=== PATIENT | male | born 1960 | race Caucasian/White ===

== ENCOUNTER 2019-09-23 10:37 | Inpatient (IN) ==
[2019-09-23] MEDS ORDERED: DILAUDID INJ IVP PRN (11:01)
[2019-09-23] MEDS ORDERED: TORADOL 30 MG VIAL IVP PRN (11:02)
[2019-09-23] MEDS ORDERED: DILAUDID INJ ONE (11:05)
[2019-09-23 11:34] VITALS: BMI 24.7
[2019-09-23] MEDS ORDERED: DEMEROL INJ IVP PRN (11:37)
[2019-09-23 11:59] LABS: BASOPHILS # (AUTO) 0.1 X10^3/uL (0.0-0.1); BASOPHILS % (AUTO) 1.3 % (0.2-1.0); EOSINOPHILS # (AUTO) 0.1 x10^3/uL (0.0-0.2); EOSINOPHILS % (AUTO) 1.4 % (0.9-2.9); HEMATOCRIT 39.7 % (42.0-54.0); HEMOGLOBIN 13.8 g/dL (13.5-18.0); LYMPHOCYTES % (AUTO) 24.3 % (21.0-51.0); MEAN CORPUSCULAR HEMOGLOBIN 31.4 pg (27.0-34.0); MEAN CORPUSCULAR HGB CONC 34.9 g/dL (33.0-35.0); MEAN CORPUSCULAR VOLUME 90.2 fL (80.0-100.0); MEAN PLATELET VOLUME 7.2 fL (7.4-11.0); MONOCYTES # (AUTO) 0.4 x10^3/uL (0.3-0.8); MONOCYTES % (AUTO) 4.9 % (0.0-13.0); NEUTROPHILS # (AUTO) 5.5 x10^3/uL (2.2-4.8); NEUTROPHILS % (AUTO) 68.1 % (42.0-75.0); PLATELET COUNT 371 X10^3/uL (150.0-450.0); RED CELL DISTRIBUTION WIDTH 13.7 % (11.6-16.5); WHITE BLOOD COUNT 8.1 X10^3/uL (3.6-10.0)
[2019-09-23 12:11] LABS: ALANINE AMINOTRANSFERASE 32 Units/L (12-78); ALBUMIN 3.5 g/dL (3.4-5.0); ALKALINE PHOSPHATASE 74 Units/L (46-116); ASPARTATE AMINO TRANSFERASE 17 Units/L (15-37); BLOOD UREA NITROGEN 14 mg/dL (7-18); CALCIUM 9.1 mg/dL (8.5-10.1); CARBON DIOXIDE 27.9 mmol/L (21-32); CHLORIDE 100 mmol/L (98-107); COR NA(FOR HYPERGLY) 137 mmol/L (136-145); CREATININE 0.95 mg/dL (0.70-1.30); SODIUM 136 mmol/L (136-145); TOTAL PROTEIN 6.9 g/dL (6.4-8.2); eGFR NON BLACK RACES > 60 (>60)
[2019-09-23] MEDS: MYCOLOG-II CREAM TOP SCH ×2 (13:24→20:56)
[2019-09-23] MEDS: DIFLUCAN 200 MG IV PREMIX* 200 MG/100 ML BAG IV SCH (13:25)
[2019-09-23] MEDS: CIPRO IV 400 MG PREMIX* 400 MG/200 ML IV.SOLN. IV SCH ×2 (13:25→20:56)
[2019-09-23] MEDS: NS 1000 ML 1,000 ML IV SCH (13:25)
[2019-09-23 13:40] LABS: BILIRUBIN,URINE NEGATIVE (NEGATIVE); BLOOD/HEMOGLOBIN,URINE NEGATIVE (NEGATIVE); GLUCOSE, URINE 4+ (NEGATIVE); KETONES,URINE 1+ (NEGATIVE); LEUKOCYTE ESTERASE ,URINE 1+ (NEGATIVE); NITRITES,URINE NEGATIVE (NEGATIVE); PROTEIN,URINE 1+ (NEGATIVE); UROBILINOGEN,URINE 1+ (NORMAL)
[2019-09-23 13:45] LABS: APPEARANCE,URINE HAZY (CLEAR); BACTERIA,URINE NEGATIVE /HPF (NEGATIVE); COLOR,URINE YELLOW (YELLOW); RBC,URINE 0-2 /HPF (0-3); SQUAMOUS EPITHELIAL CELL,UR NEGATIVE /HPF (NEGATIVE)
[2019-09-23] MEDS: XYLOCAINE VISCOUS MT SCH ×3 (15:07→20:56)
[2019-09-23] MEDS: DILAUDID INJ IVP PRN (20:55)
[2019-09-23] MEDS: HumuLIN R SUBCUT PRN (20:56)
[2019-09-24] MEDS: NS 1000 ML 1,000 ML IV SCH ×3 (02:11→15:12)
[2019-09-24] MEDS: DILAUDID INJ IVP PRN ×4 (04:20→21:44)
[2019-09-24 06:35] LABS: BASOPHILS # (AUTO) 0.1 X10^3/uL (0.0-0.1); BASOPHILS % (AUTO) 1.1 % (0.2-1.0); EOSINOPHILS # (AUTO) 0.3 x10^3/uL (0.0-0.2); HEMATOCRIT 35.7 % (42.0-54.0); HEMOGLOBIN 12.4 g/dL (13.5-18.0); LYMPHOCYTES # (AUTO) 2.6 X10^3/uL (1.3-2.9); LYMPHOCYTES % (AUTO) 38.2 % (21.0-51.0); MEAN CORPUSCULAR HGB CONC 34.7 g/dL (33.0-35.0); MEAN CORPUSCULAR VOLUME 92.1 fL (80.0-100.0); MONOCYTES # (AUTO) 0.5 x10^3/uL (0.3-0.8); MONOCYTES % (AUTO) 7.2 % (0.0-13.0); NEUTROPHILS # (AUTO) 3.4 x10^3/uL (2.2-4.8); NEUTROPHILS % (AUTO) 49.5 % (42.0-75.0); PLATELET COUNT 321 X10^3/uL (150.0-450.0); RED BLOOD COUNT 3.88 X10^6/uL (4.7-6.0); RED CELL DISTRIBUTION WIDTH 14.1 % (11.6-16.5); WHITE BLOOD COUNT 6.8 X10^3/uL (3.6-10.0)
[2019-09-24 06:45] LABS: ALANINE AMINOTRANSFERASE 26 Units/L (12-78); ALBUMIN 2.8 g/dL (3.4-5.0); ALKALINE PHOSPHATASE 60 Units/L (46-116); ASPARTATE AMINO TRANSFERASE 16 Units/L (15-37); BLOOD UREA NITROGEN 12 mg/dL (7-18); CALCIUM 8.2 mg/dL (8.5-10.1); CARBON DIOXIDE 28.4 mmol/L (21-32); CHLORIDE 103 mmol/L (98-107); COR CA(FOR HYPOALB) 9.2 mg/dL (8.5-10.1); CREATININE 0.72 mg/dL (0.70-1.30); SODIUM 138 mmol/L (136-145); TOTAL PROTEIN 5.7 g/dL (6.4-8.2); eGFR NON BLACK RACES > 60 (>60)
[2019-09-24] MEDS: DIFLUCAN 200 MG IV PREMIX* 200 MG/100 ML BAG IV SCH (09:59)
[2019-09-24] MEDS: CIPRO IV 400 MG PREMIX* 400 MG/200 ML IV.SOLN. IV SCH ×2 (09:59→21:42)
[2019-09-24] MEDS: MYCOLOG-II CREAM TOP SCH ×3 (10:01→21:44)
[2019-09-24] MEDS: XYLOCAINE VISCOUS MT SCH (10:02)
[2019-09-24] MEDS ORDERED: XYLOCAINE OINT 5% TOP SCH ×2 (10:45)
--- NOTE | 2019-09-24 10:58 | DR.UPDATE ---
H&P Update History and Physical Update: History and Physical reviewed and patient examined. Changes noted: Yes with the following: PRESENTED TO THE OFFICE WITH COMPLAINTS OF SEVERE PAIN WHEN URINATING. HE HAD A PROSTECTOMY THREE WEEKS AGO. HE REPORTS THAT HE ALMAZ A CATHETER TAKEN OUT ABOUT A WEEK AGO AND THAT SYMP TOMS STARTED THEN. HE WAS ADMITTED FOR FURTHER EVALUATION AND TREATMENT. ON ADMISSION, WE WILL OBTAIN LABS, A URINALYSIS, AND AN ABDOMEN/PELVIS CT. WE WILL START DEMEROL 25MG IV Q4H PRN PAIN, TORADOL 30MG IV Q8H PRN, NYSTATIN CREAM BID, DIFLUCAN 200MG IV DAILY, AND NORMLA SALINE AT 100ML/HR. OTHERWISE, WE PLAN TO FOLLOW UP WITH AM LABS AND CONTINUE TO MONITOR. Prescription drug monitoring program results: PDMP was not reviewed H&P Reviewed: Yes Patient was examined?: Yes
[2019-09-24] MEDS: TORADOL 30 MG VIAL IVP PRN (12:57)
[2019-09-25] MEDS: NS 1000 ML 1,000 ML IV SCH ×5 (00:08→20:58)
[2019-09-25] MEDS: DILAUDID INJ IVP PRN ×4 (04:58→20:59)
[2019-09-25] MEDS: MYCOLOG-II CREAM TOP SCH ×3 (05:53→21:09)
[2019-09-25 06:21] LABS: BASOPHILS # (AUTO) 0.1 X10^3/uL (0.0-0.1); BASOPHILS % (AUTO) 1.1 % (0.2-1.0); EOSINOPHILS # (AUTO) 0.3 x10^3/uL (0.0-0.2); HEMATOCRIT 34.8 % (42.0-54.0); HEMOGLOBIN 12.4 g/dL (13.5-18.0); LYMPHOCYTES % (AUTO) 27.4 % (21.0-51.0); MEAN CORPUSCULAR HEMOGLOBIN 32.7 pg (27.0-34.0); MEAN CORPUSCULAR HGB CONC 35.6 g/dL (33.0-35.0); MEAN PLATELET VOLUME 8.3 fL (7.4-11.0); MONOCYTES # (AUTO) 0.6 x10^3/uL (0.3-0.8); MONOCYTES % (AUTO) 8.1 % (0.0-13.0); NEUTROPHILS # (AUTO) 4.4 x10^3/uL (2.2-4.8); NEUTROPHILS % (AUTO) 59.4 % (42.0-75.0); PLATELET COUNT 294 X10^3/uL (150.0-450.0); RED BLOOD COUNT 3.78 X10^6/uL (4.7-6.0); RED CELL DISTRIBUTION WIDTH 13.7 % (11.6-16.5); WHITE BLOOD COUNT 7.4 X10^3/uL (3.6-10.0)
[2019-09-25 06:40] LABS: ALANINE AMINOTRANSFERASE 26 Units/L (12-78); ALBUMIN 2.7 g/dL (3.4-5.0); ALKALINE PHOSPHATASE 61 Units/L (46-116); ASPARTATE AMINO TRANSFERASE 16 Units/L (15-37); BLOOD UREA NITROGEN 15 mg/dL (7-18); CALCIUM 8.1 mg/dL (8.5-10.1); CARBON DIOXIDE 26.9 mmol/L (21-32); CHLORIDE 104 mmol/L (98-107); COR CA(FOR HYPOALB) 9.1 mg/dL (8.5-10.1); COR NA(FOR HYPERGLY) 140 mmol/L (136-145); SODIUM 138 mmol/L (136-145); TOTAL PROTEIN 5.6 g/dL (6.4-8.2); eGFR NON BLACK RACES > 60 (>60)
--- NOTE | 2019-09-25 07:45 | CT ---
HISTORY: Dysuria Study: CT abdomen and pelvis without contrast Comparison: None Technique: Multiple axial images of the abdomen and pelvis were obtained from the lung bases to the pubic symphysis without the administration of IV contrast. Dose reduction techniques including Automated Exposure Control (AEC) and adjustment of mA and kV were utlized. Findings: Lung bases show mild atelectasis/scarring. Coronary artery calcifications are present. Moderate atherosclerosis. No bowel obstruction. There is skin thickening of the scrotum and base of the penis with subcutaneous gas extending superiorly along the lower abdominal wall and to lesser extent within the left inguinal canal. There is mild deep pelvic stranding with sequelae of prostatectomy. The urinary bladder is collapsed, limiting its evaluation. No visible abscess. No lymphadenopathy is seen. No acute osseous finding. Except as described above, the following organs/tissues were reviewed and found to be without significant abnormality within the limits of the exam: Lung bases, liver, gallbladder, pancreas, spleen, kidneys and ureters, stomach, small and large bowel, peritoneal space, urinary bladder, reproductive organs, major vessels, lymph nodes, bones, regional soft tissues. IMPRESSION: 1. Soft tissue emphysema of the lower abdominal wall is of uncertain significance in the setting of recent surgery, however gas-forming infection would be difficult to exclude. There is mild subcutaneous stranding and skin thickening involving the scrotum in base of penis. 2. Mild deep pelvic stranding may relate to recent prostatectomy. Infection not excluded. Urinary bladder is collapsed, limiting its evaluation. No abscess is identified. Reported By:
[2019-09-25] MEDS: CIPRO IV 400 MG PREMIX* 400 MG/200 ML IV.SOLN. IV SCH ×2 (10:11→20:58)
[2019-09-25] MEDS: DIFLUCAN 200 MG IV PREMIX* 200 MG/100 ML BAG IV SCH (10:11)
[2019-09-25] MEDS ORDERED: CLEOCIN VIAL 600 MG IV SCH (15:00)
[2019-09-25] MEDS: CLEOCIN 600 MG IV PREMIX 600 MG/50 ML BAG IV SCH ×2 (15:58→21:00)
[2019-09-25] MEDS: PYRIDIUM PO SCH (16:00)
[2019-09-25] MEDS: HumuLIN R SUBCUT PRN (16:57)
[2019-09-25] MEDS: AMBIEN PO PRN (20:59)
[2019-09-26] MEDS: DILAUDID INJ IVP PRN ×4 (04:02→20:36)
[2019-09-26 05:03] LABS: BASOPHILS # (AUTO) 0.1 X10^3/uL (0.0-0.1); BASOPHILS % (AUTO) 1.1 % (0.2-1.0); EOSINOPHILS # (AUTO) 0.3 x10^3/uL (0.0-0.2); EOSINOPHILS % (AUTO) 4.5 % (0.9-2.9); HEMATOCRIT 34.3 % (42.0-54.0); LYMPHOCYTES # (AUTO) 2.2 X10^3/uL (1.3-2.9); LYMPHOCYTES % (AUTO) 35.6 % (21.0-51.0); MEAN CORPUSCULAR HEMOGLOBIN 32.3 pg (27.0-34.0); MEAN CORPUSCULAR VOLUME 92.1 fL (80.0-100.0); MEAN PLATELET VOLUME 8.1 fL (7.4-11.0); MONOCYTES # (AUTO) 0.5 x10^3/uL (0.3-0.8); MONOCYTES % (AUTO) 7.9 % (0.0-13.0); NEUTROPHILS # (AUTO) 3.2 x10^3/uL (2.2-4.8); NEUTROPHILS % (AUTO) 50.9 % (42.0-75.0); PLATELET COUNT 257 X10^3/uL (150.0-450.0); RED BLOOD COUNT 3.72 X10^6/uL (4.7-6.0); RED CELL DISTRIBUTION WIDTH 13.9 % (11.6-16.5); WHITE BLOOD COUNT 6.2 X10^3/uL (3.6-10.0)
[2019-09-26 05:27] LABS: ALANINE AMINOTRANSFERASE 30 Units/L (12-78); ALBUMIN 2.8 g/dL (3.4-5.0); ALKALINE PHOSPHATASE 59 Units/L (46-116); ASPARTATE AMINO TRANSFERASE 17 Units/L (15-37); BLOOD UREA NITROGEN 12 mg/dL (7-18); CALCIUM 8.1 mg/dL (8.5-10.1); CARBON DIOXIDE 28.3 mmol/L (21-32); CHLORIDE 104 mmol/L (98-107); COR CA(FOR HYPOALB) 9.1 mg/dL (8.5-10.1); COR NA(FOR HYPERGLY) 139 mmol/L (136-145); CREATININE 0.74 mg/dL (0.70-1.30); SODIUM 138 mmol/L (136-145); TOTAL PROTEIN 5.8 g/dL (6.4-8.2); eGFR NON BLACK RACES > 60 (>60)
[2019-09-26] MEDS: NS 1000 ML 1,000 ML IV SCH ×2 (05:50→20:34)
[2019-09-26] MEDS: CLEOCIN 600 MG IV PREMIX 600 MG/50 ML BAG IV SCH ×3 (05:50→21:46)
[2019-09-26] MEDS: MYCOLOG-II CREAM TOP SCH ×3 (05:50→21:47)
[2019-09-26] MEDS: PYRIDIUM PO SCH ×3 (08:30→16:50)
[2019-09-26] MEDS: DIFLUCAN 200 MG IV PREMIX* 200 MG/100 ML BAG IV SCH (08:30)
[2019-09-26] MEDS: CIPRO IV 400 MG PREMIX* 400 MG/200 ML IV.SOLN. IV SCH ×2 (08:30→20:35)
[2019-09-26] MEDS: HumuLIN R SUBCUT PRN ×2 (12:30→16:50)
[2019-09-26] MEDS ORDERED: MYLICON TAB 80 MG CHEW PO PRN (16:26)
[2019-09-26] MEDS: AMBIEN PO PRN (20:35)
[2019-09-27] MEDS: DILAUDID INJ IVP PRN ×2 (03:25→09:01)
[2019-09-27 05:10] LABS: BASOPHILS # (AUTO) 0.1 X10^3/uL (0.0-0.1); EOSINOPHILS # (AUTO) 0.4 x10^3/uL (0.0-0.2); EOSINOPHILS % (AUTO) 4.5 % (0.9-2.9); HEMATOCRIT 35.5 % (42.0-54.0); HEMOGLOBIN 12.4 g/dL (13.5-18.0); LYMPHOCYTES # (AUTO) 2.1 X10^3/uL (1.3-2.9); LYMPHOCYTES % (AUTO) 26.9 % (21.0-51.0); MEAN CORPUSCULAR HEMOGLOBIN 31.9 pg (27.0-34.0); MEAN CORPUSCULAR VOLUME 91.1 fL (80.0-100.0); MONOCYTES # (AUTO) 0.6 x10^3/uL (0.3-0.8); MONOCYTES % (AUTO) 7.5 % (0.0-13.0); NEUTROPHILS # (AUTO) 4.7 x10^3/uL (2.2-4.8); NEUTROPHILS % (AUTO) 60.1 % (42.0-75.0); PLATELET COUNT 249 X10^3/uL (150.0-450.0); RED BLOOD COUNT 3.89 X10^6/uL (4.7-6.0); RED CELL DISTRIBUTION WIDTH 13.8 % (11.6-16.5); WHITE BLOOD COUNT 7.8 X10^3/uL (3.6-10.0)
[2019-09-27 05:18] LABS: ALANINE AMINOTRANSFERASE 29 Units/L (12-78); ALBUMIN 2.8 g/dL (3.4-5.0); ALKALINE PHOSPHATASE 61 Units/L (46-116); ASPARTATE AMINO TRANSFERASE 16 Units/L (15-37); BLOOD UREA NITROGEN 14 mg/dL (7-18); CARBON DIOXIDE 29.8 mmol/L (21-32); CHLORIDE 104 mmol/L (98-107); COR NA(FOR HYPERGLY) 139 mmol/L (136-145); CREATININE 0.76 mg/dL (0.70-1.30); SODIUM 138 mmol/L (136-145); TOTAL PROTEIN 5.8 g/dL (6.4-8.2); eGFR NON BLACK RACES > 60 (>60)
[2019-09-27] MEDS: MYCOLOG-II CREAM TOP SCH ×3 (05:36→21:03)
[2019-09-27] MEDS: CLEOCIN 600 MG IV PREMIX 600 MG/50 ML BAG IV SCH (05:36)
[2019-09-27] MEDS: NS 1000 ML 1,000 ML IV SCH ×2 (05:37→07:06)
[2019-09-27] MEDS: PYRIDIUM PO SCH ×3 (09:01→17:32)
[2019-09-27] MEDS: DIFLUCAN 200 MG IV PREMIX* 200 MG/100 ML BAG IV SCH (09:02)
[2019-09-27] MEDS: CIPRO IV 400 MG PREMIX* 400 MG/200 ML IV.SOLN. IV SCH ×2 (09:02→21:01)
[2019-09-27] MEDS ORDERED: DILAUDID INJ IVP PRN (10:14)
[2019-09-27] MEDS: NORCO 7.5/325 MG TAB PO PRN ×2 (11:43→20:59)
--- NOTE | 2019-09-27 11:49 | RAD ---
HISTORY: Dysuria, difficulty emptying bladder. Her medical history of coronary artery disease, prostate cancer, hypertension, diabetes type 2. Prior surgical history of heart and prostate. Study: KUB Comparison: CT abdomen and pelvis done 09/25/2019. Findings: Large amount of stool is present in the right colon. There is some residual contrast material present and mild amount of stool present involving the descending colon and rectosigmoid regions. No bowel obstruction is seen. There is no evidence of opaque stone. Osseous structures are intact. No evidence of bladder distention is seen. IMPRESSION: Abundant right colon stool without bowel obstruction. No opaque stone is seen. Reported By:
[2019-09-27] MEDS: MILK OF MAGNESIA PO SCH ×2 (12:51→21:00)
[2019-09-27] MEDS: HumuLIN R SUBCUT PRN (17:20)
[2019-09-27] MEDS ORDERED: BUTT CREAM (COMPOUND) TOP PRN (18:53)
[2019-09-27] MEDS: AMBIEN PO PRN (20:59)
[2019-09-27] MEDS ORDERED: MILK OF MAGNESIA PO SCH (21:00)
[2019-09-27] MEDS ORDERED: MIRALAX POWDER (1 DOSE 17 G) PO SCH (21:00)
[2019-09-27] MEDS ORDERED: COLACE CAP 100 MG PO SCH (21:00)
[2019-09-27] MEDS: TORADOL 30 MG VIAL IVP PRN (23:24)
[2019-09-28] MEDS: NS 1000 ML 1,000 ML IV SCH ×3 (01:00→15:14)
[2019-09-28] MEDS: MYCOLOG-II CREAM TOP SCH ×2 (05:33→15:14)
[2019-09-28] MEDS: PYRIDIUM PO SCH (06:04)
[2019-09-28 06:28] LABS: BASOPHILS # (AUTO) 0.1 X10^3/uL (0.0-0.1); BASOPHILS % (AUTO) 0.8 % (0.2-1.0); EOSINOPHILS # (AUTO) 0.4 x10^3/uL (0.0-0.2); EOSINOPHILS % (AUTO) 5.5 % (0.9-2.9); HEMATOCRIT 37.1 % (42.0-54.0); HEMOGLOBIN 12.7 g/dL (13.5-18.0); LYMPHOCYTES # (AUTO) 2.1 X10^3/uL (1.3-2.9); LYMPHOCYTES % (AUTO) 30.6 % (21.0-51.0); MEAN CORPUSCULAR HEMOGLOBIN 31.4 pg (27.0-34.0); MEAN CORPUSCULAR HGB CONC 34.3 g/dL (33.0-35.0); MEAN CORPUSCULAR VOLUME 91.6 fL (80.0-100.0); MEAN PLATELET VOLUME 7.9 fL (7.4-11.0); MONOCYTES # (AUTO) 0.5 x10^3/uL (0.3-0.8); MONOCYTES % (AUTO) 6.5 % (0.0-13.0); NEUTROPHILS # (AUTO) 3.9 x10^3/uL (2.2-4.8); NEUTROPHILS % (AUTO) 56.6 % (42.0-75.0); PLATELET COUNT 239 X10^3/uL (150.0-450.0); RED BLOOD COUNT 4.05 X10^6/uL (4.7-6.0); RED CELL DISTRIBUTION WIDTH 14.3 % (11.6-16.5); WHITE BLOOD COUNT 6.9 X10^3/uL (3.6-10.0)
[2019-09-28 06:42] LABS: ALANINE AMINOTRANSFERASE 28 Units/L (12-78); ALKALINE PHOSPHATASE 67 Units/L (46-116); ASPARTATE AMINO TRANSFERASE 17 Units/L (15-37); BLOOD UREA NITROGEN 10 mg/dL (7-18); CALCIUM 8.3 mg/dL (8.5-10.1); CARBON DIOXIDE 29.8 mmol/L (21-32); CHLORIDE 103 mmol/L (98-107); COR CA(FOR HYPOALB) 9.1 mg/dL (8.5-10.1); COR NA(FOR HYPERGLY) 139 mmol/L (136-145); SODIUM 138 mmol/L (136-145); TOTAL PROTEIN 6.2 g/dL (6.4-8.2); eGFR NON BLACK RACES > 60 (>60)
[2019-09-28] MEDS: MILK OF MAGNESIA PO SCH (09:55)
[2019-09-28] MEDS: CIPRO IV 400 MG PREMIX* 400 MG/200 ML IV.SOLN. IV SCH (09:55)
[2019-09-28 10:26] VITALS: BP 159/76
[2019-09-28] MEDS: DIFLUCAN 200 MG IV PREMIX* 200 MG/100 ML BAG IV SCH (11:13)
[2019-09-28] MEDS: HumuLIN R SUBCUT PRN (12:53)
== END 2019-09-28 15:30 | disposition home or self-care (01) | DRG 556 ==
LOC: ICU → MED/SURG 09-24 15:15
PROVIDERS: ADMIT Internal Medicine; ATTEND Internal Medicine
CPT/HCPCS: 36415; 74000; 74018; 74176; 80053; 81001; 85025; 87086; A4216; A4222; G0378; J0744; J1170; J1450; J1815; J1885; J2175; J7030; S0077

== ENCOUNTER 2022-06-19 15:20 | Observation (INO) ==
[2022-06-19 18:01] LABS: BASOPHILS # (AUTO) 0.1 X10^3/uL (0.0-0.1); BASOPHILS % (AUTO) 1.2 % (0.2-1.0); EOSINOPHILS # (AUTO) 0.9 x10^3/uL (0.0-0.2); EOSINOPHILS % (AUTO) 10.5 % (0.9-2.9); HEMATOCRIT 39.7 % (42.0-54.0); LYMPHOCYTES # (AUTO) 2.6 X10^3/uL (1.3-2.9); LYMPHOCYTES % (AUTO) 29.8 % (21.0-51.0); MEAN CORPUSCULAR HEMOGLOBIN 32.1 pg (27.0-34.0); MEAN CORPUSCULAR HGB CONC 35.3 g/dL (33.0-35.0); MEAN CORPUSCULAR VOLUME 90.9 fL (80.0-100.0); MEAN PLATELET VOLUME 9.8 fL (7.4-11.0); MONOCYTES # (AUTO) 0.7 x10^3/uL (0.3-0.8); MONOCYTES % (AUTO) 7.9 % (0.0-13.0); NEUTROPHILS # (AUTO) 4.4 x10^3/uL (2.2-4.8); NEUTROPHILS % (AUTO) 50.6 % (42.0-75.0); RED BLOOD COUNT 4.36 X10^6/uL (4.7-6.0); RED CELL DISTRIBUTION WIDTH 13.3 % (11.6-16.5); WHITE BLOOD COUNT 8.6 X10^3/uL (3.6-10.0)
[2022-06-19] MEDS: LEVEMIR SC SCH (18:04)
[2022-06-19] MEDS: NS 1,000 ML IV 1,000 ML IV SCH (18:05)
[2022-06-19 18:10] LABS: HEMOGLOBIN A1C 12.7 %
[2022-06-19 18:14] LABS: ALANINE AMINOTRANSFERASE 20 Units/L (12-78); ALBUMIN 3.3 g/dL (3.4-5.0); ALKALINE PHOSPHATASE 74 Units/L (46-116); ASPARTATE AMINO TRANSFERASE 12 Units/L (15-37); BLOOD UREA NITROGEN 32 mg/dL (7-18); CALCIUM 8.7 mg/dL (8.5-10.1); CARBON DIOXIDE 25.9 mmol/L (21-32); CHLORIDE 99 mmol/L (98-107); COR CA(FOR HYPOALB) 9.3 mg/dL (8.5-10.1); COR NA(FOR HYPERGLY) 137 mmol/L (136-145); CREATININE 1.36 mg/dL (0.70-1.30); SODIUM 133 mmol/L (136-145); TOTAL PROTEIN 6.7 g/dL (6.4-8.2); eGFR NON BLACK RACES 56 (>60)
[2022-06-19] MEDS: RESTORIL CAP 15 MG PO PRN (20:53)
[2022-06-20] MEDS: NS 1,000 ML IV 1,000 ML IV SCH ×3 (06:10→20:40)
[2022-06-20 06:13] LABS: BASOPHILS # (AUTO) 0.1 X10^3/uL (0.0-0.1); EOSINOPHILS # (AUTO) 0.9 x10^3/uL (0.0-0.2); EOSINOPHILS % (AUTO) 11.9 % (0.9-2.9); HEMATOCRIT 39.1 % (42.0-54.0); HEMOGLOBIN 13.8 g/dL (13.5-18.0); LYMPHOCYTES # (AUTO) 2.1 X10^3/uL (1.3-2.9); LYMPHOCYTES % (AUTO) 26.8 % (21.0-51.0); MEAN CORPUSCULAR HEMOGLOBIN 32.1 pg (27.0-34.0); MEAN CORPUSCULAR HGB CONC 35.3 g/dL (33.0-35.0); MEAN CORPUSCULAR VOLUME 90.8 fL (80.0-100.0); MEAN PLATELET VOLUME 10.9 fL (7.4-11.0); MONOCYTES # (AUTO) 0.6 x10^3/uL (0.3-0.8); MONOCYTES % (AUTO) 7.4 % (0.0-13.0); NEUTROPHILS # (AUTO) 4.1 x10^3/uL (2.2-4.8); NEUTROPHILS % (AUTO) 52.9 % (42.0-75.0); RED CELL DISTRIBUTION WIDTH 13.1 % (11.6-16.5)
[2022-06-20 06:23] LABS: ALANINE AMINOTRANSFERASE 16 Units/L (12-78); ALKALINE PHOSPHATASE 64 Units/L (46-116); ASPARTATE AMINO TRANSFERASE 13 Units/L (15-37); BLOOD UREA NITROGEN 23 mg/dL (7-18); CALCIUM 8.6 mg/dL (8.5-10.1); CHLORIDE 104 mmol/L (98-107); COR CA(FOR HYPOALB) 9.4 mg/dL (8.5-10.1); COR NA(FOR HYPERGLY) 139 mmol/L (136-145); CREATININE 0.92 mg/dL (0.70-1.30); SODIUM 138 mmol/L (136-145); TOTAL PROTEIN 6.1 g/dL (6.4-8.2); eGFR NON BLACK RACES > 60 (>60)
[2022-06-20 06:49] LABS: WHITE BLOOD COUNT 8.4 X10^3/uL (3.6-10.0)
[2022-06-20 06:51] LABS: PLATELET MORPHOLOGY COMMENT NORMAL (NORMAL)
[2022-06-20] MEDS: LEVEMIR SC SCH (08:35)
[2022-06-20] MEDS ORDERED: ZESTRIL TAB 5 MG PO SCH (09:15)
[2022-06-20] MEDS ORDERED: ASPIRIN EC 81 MG PO SCH (10:00)
[2022-06-20] MEDS ORDERED: PROTONIX TAB 40 MG PO SCH (10:00)
[2022-06-20] MEDS ORDERED: AMARYL TAB 4 MG PO SCH (10:00)
[2022-06-20] MEDS ORDERED: VISTARIL PO ONE (10:59)
[2022-06-20] MEDS: PATIENT'S HOME MEDICATION PO SCH ×5 (11:28→20:42)
--- NOTE | 2022-06-20 13:02 | DR.UPDATE ---
H&P Update History and Physical Update: History and Physical reviewed and patient examined. Changes noted: Yes with the following: HAS BEEN SEEN IN THE OFFICE FOR COMPLAINTS OF HYPERGLYCEMIA. HE IS CURRENTLY TAKING GLIMEPIRIDE 4MG PO BID, PIOGLITAZONE 45MG PO HS, AND WAS RECENTLY STARTED ON JANUMET XR 100-1,000MG HS ONE WEEK AGO. PATIENT REPORTS PERSISTENTLY ELEVATED BLOOD GLUCOSE LEVELS DESPITE CHANGES TO MEDICATIONS. HE EXPRESSED CONCERNS OF HAVING TO BE ON INSULIN DUE TO HIS OCCUPATION. HE REPORTS THAT HIS BLOOD GLUCOSE AT HOME YESTERDAY WAS OVER 500g/dL. HE REPORTS NEAR SYNCOPE AND WEAKNESS WHEN GLUCOSE IS ELEVATED. DECISION WAS MADE TO ADMIT PATIENT TO THE HOSPITAL DUE TO UNCONTROLLED TYPE 2 DIABETES. ON ADMISSION, VITALS WERE [id number]%-146/67. LABS WERE OBTAINED. WBC 8.6, RBC 4.36, HGB 14.0, HCT 39.7, PLT COUNT 174, SODIUM 133, POTASSIUM 4.3, CHLORIDE 99, BUN 32, CREATININE 1.36, GLUCOSE 250, A1C 12.7, CALCIUM 8.7, AST 12, ALT 20, ALK PHOS 74, TOTAL PROTEIN 6.7, ALBUMIN 3.3. COVID-19 NEGATIVE. HE WAS STARTED ON NORMAL SALINE AT 80 ML/HR, LEVEMIR 15 UNITS SC HS, HUMALOG 5 UNITS TIDWM, AND RESTORIL 15MG PO HS PRN. WE WILL RESUME HIS HOME MEDICATIONS, INCLUDING JANUMET, GLIPIZIDE, AND PIOGLITAZONE. HE WAS COUNSELED ON A STRICT DIABETIC DIET. OTHERWISE, WE PLAN TO FOLLOW-UP WITH AM LABS AND CONTINUE TO MONITOR. TIME SPENT ON CLINICAL ASSESSMENT, REVIWING LABS AND IMAGING, DECISION MAKING, AND DOCUMENTATION GREATER THAN 75 MINUTES. H&P Reviewed: Yes Patient was examined?: Yes
[2022-06-20 15:35] VITALS: BMI 24.1
[2022-06-20] MEDS ORDERED: XANAX PO PRN (16:13)
[2022-06-20] MEDS ORDERED: HumaLOG SC SCH (17:41)
[2022-06-20] MEDS ORDERED: SNACK - Diabetic Appropriate PO SCH (20:00)
[2022-06-20] MEDS: RESTORIL CAP 15 MG PO PRN (20:44)
[2022-06-20] MEDS ORDERED: ACTOS PO SCH (21:00)
[2022-06-20] MEDS ORDERED: SITAGLIPTIN METFORMIN PO SCH (21:00)
[2022-06-20] MEDS ORDERED: JANUVIA PO SCH (21:00)
[2022-06-20] MEDS ORDERED: COREG TAB 3.125 MG PO SCH (21:00)
[2022-06-20] MEDS ORDERED: [UNRECOGNIZED DRUG - OTHER] PO SCH (21:00)
[2022-06-20] MEDS ORDERED: GLUCOPHAGE XR 24-HR PO SCH (21:00)
[2022-06-20] MEDS ORDERED: LIPITOR TAB 40 MG PO SCH (21:00)
[2022-06-20] MEDS ORDERED: MULT PO SCH (21:00)
[2022-06-20] MEDS ORDERED: PATIENT'S HOME MEDICATION PO SCH ×4 (21:00)
[2022-06-21 06:06] LABS: BASOPHILS # (AUTO) 0.1 X10^3/uL (0.0-0.1); BASOPHILS % (AUTO) 1.2 % (0.2-1.0); EOSINOPHILS # (AUTO) 0.8 x10^3/uL (0.0-0.2); HEMOGLOBIN 12.9 g/dL (13.5-18.0); LYMPHOCYTES # (AUTO) 2.2 X10^3/uL (1.3-2.9); LYMPHOCYTES % (AUTO) 34.8 % (21.0-51.0); MEAN CORPUSCULAR HEMOGLOBIN 31.6 pg (27.0-34.0); MEAN CORPUSCULAR HGB CONC 34.9 g/dL (33.0-35.0); MEAN CORPUSCULAR VOLUME 90.7 fL (80.0-100.0); MEAN PLATELET VOLUME 9.7 fL (7.4-11.0); MONOCYTES # (AUTO) 0.5 x10^3/uL (0.3-0.8); MONOCYTES % (AUTO) 7.2 % (0.0-13.0); NEUTROPHILS # (AUTO) 2.9 x10^3/uL (2.2-4.8); NEUTROPHILS % (AUTO) 44.8 % (42.0-75.0); RED BLOOD COUNT 4.08 X10^6/uL (4.7-6.0); WHITE BLOOD COUNT 6.4 X10^3/uL (3.6-10.0)
[2022-06-21 06:07] LABS: ALANINE AMINOTRANSFERASE 18 Units/L (12-78); ALBUMIN 2.7 g/dL (3.4-5.0); ALKALINE PHOSPHATASE 65 Units/L (46-116); ASPARTATE AMINO TRANSFERASE 10 Units/L (15-37); BLOOD UREA NITROGEN 17 mg/dL (7-18); CALCIUM 8.4 mg/dL (8.5-10.1); CARBON DIOXIDE 24.7 mmol/L (21-32); CHLORIDE 107 mmol/L (98-107); COR CA(FOR HYPOALB) 9.4 mg/dL (8.5-10.1); COR NA(FOR HYPERGLY) 140 mmol/L (136-145); CREATININE 0.92 mg/dL (0.70-1.30); SODIUM 139 mmol/L (136-145); TOTAL PROTEIN 5.7 g/dL (6.4-8.2); eGFR NON BLACK RACES > 60 (>60)
[2022-06-21] MEDS: NS 1,000 ML IV 1,000 ML IV SCH ×2 (06:30→08:55)
[2022-06-21 08:48] VITALS: BP 113/58
[2022-06-21] MEDS: PATIENT'S HOME MEDICATION PO SCH ×4 (08:51→08:52)
== END 2022-06-21 11:00 | disposition home or self-care (01) ==
LOC: MED/SURG
PROVIDERS: ADMIT Internal Medicine; ATTEND Internal Medicine
DX: R42 Dizziness and giddiness; Z20.822 Contact with and (suspected) exposure to COVID-19; R55 Syncope and collapse; E11.65 Type 2 diabetes mellitus with hyperglycemia; I10 Essential (primary) hypertension; R06.02 Shortness of breath